=== PATIENT | male | born 1990 | race Caucasian/White ===

== ENCOUNTER 2021-02-15 17:22 | Emergency (ER) | payer OTHER ==
--- NOTE | 2021-02-15 20:25 | RAD REPORT ---
EXAM DESCRIPTION: CT - CTHCSPWOC - 02/15/2021 8:11 pm CLINICAL HISTORY: Trauma, head and neck injury. PAIN COMPARISON: No comparisons TECHNIQUE: Axial 5 mm thick images of the head were obtained. Axial 2 mm thick images of the cervical spine were obtained with sagittal and coronal reconstruction images generated and reviewed. All CT scans are performed using dose optimization technique as appropriate and may include automated exposure control or mA/KV adjustment according to patient size. FINDINGS: CT HEAD WITHOUT CONTRAST: No acute hemorrhage, hydrocephalus or extra-axial collection is identified.No areas of brain edema or midline shift. The paranasal sinuses and mastoids are clear.The calvarium is intact. CT CERVICAL SPINE WITHOUT CONTRAST: No fracture or subluxation.No prevertebral soft tissues swelling is identified. IMPRESSION: No acute intracranial or cervical spine findings.
[2021-02-15 20:48] LABS: Basophils % 0.6 % (0-1.3); Hematocrit 41.5 % (39.6-49.0); MPV 8.9 fL (7.6-11.3); RBC Red Blood Cell Count 4.91 M/uL (4.33-5.43)
[2021-02-15] MEDS ORDERED: NA CHLORIDE 0.9% 1,000 ML ONE (20:52)
[2021-02-15] MEDS ORDERED: dexAMETHasone 10 MG/ML VIAL ONE (20:52)
[2021-02-15] MEDS ORDERED: KETOROLAC 30 MG/ML INJ ONE (20:52)
[2021-02-15 20:55] LABS: Albumin 4.5 g/dL (3.4-5.0); Bilirubin Total 1.7 mg/dL (0.2-1.0); Potassium 3.8 mmol/L (3.5-5.1); Protein, Total 7.5 g/dL (6.4-8.2)
--- NOTE | 2021-02-15 21:14 | EDPHYS ---
Physician Documentation [facility] Name: Karishma Rodriguez Age: 30 yrs Sex: Male : 1990 Arrival Date: 02/15/2021 Time: 17:23 Bed 15 Private MD: ROGERIO Physician Yash Vazquez HPI: 02/15 20:01 This 30 yrs old Male presents to ER via Ambulatory with complaints of Neck josh Injury, Neck Pain, <24hrs Old. 20:01 The patient or guardian complains of decreased range of motion, pain. The symptoms are josh located on the back of neck and posterior chest. Onset: The symptoms/episode began/occurred 1.5 month(s) ago. Context: The problem was sustained at an unknown location. Associated signs and symptoms: Pertinent positives: numbness, in the right arm and left arm. The pain radiates to the back, right arm and left arm. Modifying factors: The symptoms are alleviated by remaining still, the symptoms are aggravated by nothing. movement. Severity of symptoms: At their worst the symptoms were mild, moderate, in the emergency department the symptoms have improved, mildly. The patient has experienced similar episodes in the past, multiple times. Historical: - Allergies: 17:48 No Known Allergies; jd3 - Home Meds: 17:48 None [Active]; jd3 - PMHx: 17:48 None; jd3 - PSHx: 17:48 None; jd3 - Immunization history:: Adult Immunizations up to date. - Social history:: Smoking status: Patient denies any tobacco usage or history of. - Family history:: not pertinent. ROS: 20:01 Constitutional: Negative for fever, chills, and weight loss, Eyes: Negative for injury, josh pain, redness, and discharge, ENT: Negative for injury, pain, and discharge, Cardiovascular: Negative for chest pain, palpitations, and edema, Respiratory: Negative for shortness of breath, cough, wheezing, and pleuritic chest pain, Abdomen/GI: Negative for abdominal pain, nausea, vomiting, diarrhea, and constipation, Back: Negative for injury and pain, : Negative for injury, bleeding, discharge, and swelling, MS/Extremity: Negative for injury and deformity, Skin: Negative for injury, rash, and discoloration, Neuro: Negative for headache, weakness, numbness, tingling, and seizure, Psych: Negative for depression, anxiety, suicide ideation, homicidal ideation, and hallucinations, Allergy/Immunology: Negative for hives, rash, and allergies, Endocrine: Negative for neck swelling, polydipsia, polyuria, polyphagia, and marked weight changes, Hematologic/Lymphatic: Negative for swollen nodes, abnormal bleeding, and unusual bruising. 20:01 Neck: Positive for pain with movement, pain at rest. Exam: 20:01 Constitutional: This is a well developed, well nourished patient who is awake, alert, josh and in no acute distress. Head/Face: Normocephalic, atraumatic. Eyes: Pupils equal round and reactive to light, extra-ocular motions intact. Lids and lashes normal. Conjunctiva and sclera are non-icteric and not injected. Cornea within normal limits. Periorbital areas with no swelling, redness, or edema. ENT: Nares patent. No nasal discharge, no septal abnormalities noted. Tympanic membranes are normal and external auditory canals are clear. Oropharynx with no redness, swelling, or masses, exudates, or evidence of obstruction, uvula midline. Mucous membranes moist. Chest/axilla: Normal chest wall appearance and motion. Nontender with no deformity. No lesions are appreciated. Cardiovascular: Regular rate and rhythm with a normal S1 and S2. No gallops, murmurs, or rubs. Normal PMI, no JVD. No pulse deficits. Respiratory: Lungs have equal breath sounds bilaterally, clear to auscultation and percussion. No rales, rhonchi or wheezes noted. No increased work of breathing, no retractions or nasal flaring. Abdomen/GI: Soft, non-tender, with normal bowel sounds. No distension or tympany. No guarding or rebound. No evidence of tenderness throughout. Back: No spinal tenderness. No costovertebral tenderness. Full range of motion. Male : Normal genitalia with no discharge or lesions. Skin: Warm, dry with normal turgor. Normal color with no rashes, no lesions, and no evidence of cellulitis. MS/ Extremity: Pulses equal, no cyanosis. Neurovascular intact. Full, normal range of motion. Neuro: Awake and alert, GCS 15, oriented to person, place, time, and situation. Cranial nerves II-XII grossly intact. Motor strength 5/5 in all extremities. Sensory grossly intact. Cerebellar exam normal. Normal gait. Psych: Awake, alert, with orientation to person, place and time. Behavior, mood, and affect are within normal limits. 20:01 Neck: External neck: is normal, no acute changes, C-spine: no acute changes, Trachea: is midline with no obvious abnormalities, ROM/movement: pain, that is mild, with rotation to the left, with rotation to the right, with extension, with flexion. 20:41 ECG was reviewed by the Attending Physician. josh Vital Signs: 17:48 BP 131 / 96; Pulse 86; Resp 16 S; Temp 98.4(TE); Pulse Ox 98% on R/A; Weight 77 kg (R); jd3 Height 6 ft. 2 in. (190 cm) (R); Pain 7/10; 20:45 BP 133 / 86; Pulse 65; Resp 16 S; Pulse Ox 98% on R/A; ad5 22:23 BP 124 / 82; Pulse 61; Resp 16 S; Pulse Ox 98% on R/A; Pain 0/10; ad5 17:48 Body Mass Index 21.33 (77.00 kg, 190 cm) jd3 MDM: 19:30 Patient medically screened. josh 20:42 Differential diagnosis: arthritis, Cervical Disc Herniation Cervical Facet Syndrome josh Cervical Raiculopathy cervical strain, Degenerative Disc Disease fracture, Neck Contusion Osteoarthritis Simple Wedge Fracture Spinal Cord Compression torticollis. Data reviewed: vital signs, nurses notes, lab test result(s), EKG, radiologic studies, CT scan, plain films. Data interpreted: monitoring engineer: rate is 86 beats/min, rhythm is regular, Pulse oximetry: on room air is 98 %. Test interpretation: by ED physician or midlevel provider: ECG, plain radiologic studies. Counseling: I had a detailed discussion with the patient and/or guardian regarding: the historical points, exam findings, and any diagnostic results supporting the discharge/admit diagnosis, lab results, radiology results, the need for outpatient follow up, for definitive care, a family practitioner, a neurologist. 02/15 20:00 Order name: CBC with Diff; Complete Time: 21:12 [facility] 02/15 20:00 Order name: Comprehensive Metabolic Panel; Complete Time: 21:12 [facility] 02/15 20:00 Order name: Sed Rate; Complete Time: 21:12 [facility] 02/15 20:05 Order name: Troponin (emerg Dept Use Only); Complete Time: 21:12 [facility] 02/15 20:06 Order name: D-Dimer; Complete Time: 21:12 [facility] 02/15 20:05 Order name: CT Head C Spine; Complete Time: 20:32 [facility] 02/15 20:05 Order name: Chest Single View XRAY [facility] 02/15 20:05 Order name: EKG; Complete Time: 20:06 [facility] 02/15 20:05 Order name: EKG - Nurse/Tech; Complete Time: 20:42 [facility] EC:41 Rate is 58 beats/min. Rhythm is regular. QRS [place] is Normal. IN interval is normal. QRS josh interval is normal. QT interval is normal. No Q waves. T waves are Normal. No ST changes noted. Clinical impression: NSR w/ Non-specific ST/T Changes and No evidence of ischemia. Interpreted by me. Reviewed by me. Administered Medications: 20:38 Drug: Decadron - Dexamethasone 10 mg Route: IVP; Site: right antecubital; ea 22:23 Follow up: Response: No adverse reaction ad5 20:39 Drug: NS 0.9% 1000 ml Route: IV; Rate: 1 bolus; Site: right antecubital; ea 22:24 Follow up: IV Status: Completed infusion; IV Intake: 1000ml ad5 20:39 Drug: TORadol (ketorolac) 30 mg Route: IVP; Site: right antecubital; ea 22:23 Follow up: Response: No adverse reaction ad5 Disposition: 02/15/21 21:13 Discharged to Home. Impression: Strain of muscle, fascia and tendon at neck level, Radiculopathy, cervical region. - Condition is Stable. - Discharge Instructions: Cervical Radiculopathy, Muscle Strain, Cervical Sprain, [id number], Cervical Radiculopathy, [id number], Radicular Pain. - Prescriptions for dexamethasone 2 mg Oral tablet - take 1 tablet by ORAL route 2 times per day; 10 tablet. Ibuprofen 600 mg Oral Tablet - take 1 tablet by ORAL route every 6 hours As needed take with food; 20 tablet. Cyclobenzaprine 5 mg Oral Tablet - take 1 tablet by ORAL route 3 times per day As needed; 15 tablet. - Medication Reconciliation Form, Thank You Letter, Antibiotic Education, Prescription Opioid Use form. - Follow up: Private Physician; When: 2 - 3 days; Reason: Recheck today's complaints, Continuance of care, Re-evaluation by your physician. Follow up: Chaz Mullins; When: 2 - 3 days; Reason: Recheck today's complaints, Continuance of care, Re-evaluation by your physician. - Problem is new. - Symptoms have improved. Signatures: Dispatcher [employer] [facility] Yash Vazquez MD MD cha Antunez, Elena, RN RN ea Davies, Jonathon, RN RN jd3 Davidson, Andrea ad5 Corrections: (The following items were deleted from the chart) 20:08 20:00 C Spine Wo Con+CT.RAD.BRZ ordered. [facility] 22:26 21:13 02/15/2021 21:13 Discharged to Home. Impression: Strain of muscle, fascia and ad5 tendon at neck level; Radiculopathy, cervical region. Condition is Stable. Discharge Instructions: Cervical Radiculopathy, Muscle Strain, Cervical Sprain, [id number], Cervical Radiculopathy, [id number], Radicular Pain. Prescriptions for dexamethasone 2 mg Oral tablet - take 1 tablet by ORAL route 2 times per day; 10 tablet, Ibuprofen 600 mg Oral Tablet - take 1 tablet by ORAL route every 6 hours As needed take with food; 20 tablet, Cyclobenzaprine 5 mg Oral Tablet - take 1 tablet by ORAL route 3 times per day As needed; 15 tablet. and Forms are Medication Reconciliation Form, Thank You Letter, Antibiotic Education, Prescription Opioid Use. Follow up: Private Physician; When: 2 - 3 days; Reason: Recheck today's complaints, Continuance of care, Re-evaluation by your physician. Follow up: Chaz Mullins; When: 2 - 3 days; Reason: Recheck today's complaints, Continuance of care, Re-evaluation by your physician. Problem is new. Symptoms have improved. josh
--- NOTE | 2021-02-15 21:14 | ER ---
Nurse's Notes [facility] Name: Karishma Rodriguez Age: 30 yrs Sex: Male : 1990 Arrival Date: 02/15/2021 Time: 17:23 Bed 15 Private MD: Diagnosis: Strain of muscle, fascia and tendon at neck level;Radiculopathy, cervical region Presentation: 02/15 17:44 Chief complaint: Patient states: "in the last 3-4 days I have been getting worse. my jd3 neck is causing pain that causes vision problems, and shooting pain down into my back. this pain almost causes blackouts. it makes it feel like my arms are burning from time to time. the pain into the back sometimes does not allow me to get a full breath. it is not allowing me to sleep to well.". Coronavirus screen: At this time, the client does not indicate any symptoms associated with coronavirus-19. Ebola Screen: Patient negative for fever greater than or equal to 101.5 degrees Fahrenheit, and additional compatible Ebola Virus Disease symptoms. Initial Sepsis Screen: Does the patient meet any 2 criteria? No. Patient's initial sepsis screen is negative. Does the patient have a suspected source of infection? No. Patient's initial sepsis screen is negative. Risk Assessment: Do you want to hurt yourself or someone else? Patient reports no desire to harm self or others. Onset of symptoms was February 11, 2021. 17:44 Method Of Arrival: Ambulatory jd3 17:44 Acuity: MILANA 3 jd3 Historical: - Allergies: 17:48 No Known Allergies; jd3 - Home Meds: 17:48 None [Active]; jd3 - PMHx: 17:48 None; jd3 - PSHx: 17:48 None; jd3 - Immunization history:: Adult Immunizations up to date. - Social history:: Smoking status: Patient denies any tobacco usage or history of. - Family history:: not pertinent. Screenin:44 Abuse screen: Denies threats or abuse. Denies injuries from another. Nutritional ad5 screening: No deficits noted. Tuberculosis screening: No symptoms or risk factors identified. Fall Risk None identified. Assessment: 20:43 General: Appears in no apparent distress. Behavior is calm, cooperative, appropriate ad5 for age. Pain: Complains of pain in neck, mid upper back, RUE/LUE. Neuro: Level of Consciousness is awake, alert, obeys commands, Oriented to person, place, time, situation, Appropriate for age Inspector And Mender are equal bilaterally Moves all extremities. Speech is normal, Numbness in right arm and left arm. Cardiovascular: No deficits noted. Heart tones present Capillary refill < 3 seconds JVD is absent Patient's skin is warm and dry. Respiratory: No deficits noted. Airway is patent Respiratory effort is even, unlabored, Respiratory pattern is regular, symmetrical. GI: No deficits noted. No signs and/or symptoms were reported involving the gastrointestinal system. : No deficits noted. No signs and/or symptoms were reported regarding the genitourinary system. EENT: No deficits noted. No signs and/or symptoms were reported regarding the EENT system. Derm: No deficits noted. No signs and/or symptoms reported regarding the dermatologic system. Skin is pink, warm \\T\\ dry. Musculoskeletal: Reports numbness in RUE and LUE pain in posterior neck, mid upper back, LUE/RUE. 22:22 Reassessment: Patient appears in no apparent distress at this time. Patient and/or ad5 family updated on plan of care and expected duration. Pain level reassessed. Patient is alert, oriented x 3, equal unlabored respirations, skin warm/dry/pink. Patient states feeling better. Patient states symptoms have improved. Vital Signs: 17:48 BP 131 / 96; Pulse 86; Resp 16 S; Temp 98.4(TE); Pulse Ox 98% on R/A; Weight 77 kg (R); jd3 Height 6 ft. 2 in. (190 cm) (R); Pain 7/10; 20:45 BP 133 / 86; Pulse 65; Resp 16 S; Pulse Ox 98% on R/A; ad5 22:23 BP 124 / 82; Pulse 61; Resp 16 S; Pulse Ox 98% on R/A; Pain 0/10; ad5 17:48 Body Mass Index 21.33 (77.00 kg, 190 cm) jd3 ED Course: 17:23 Patient arrived in ED. am2 17:47 Triage completed. jd3 17:49 Arm band placed on. jd3 19:30 Yash Vazquez MD is Attending Physician. josh 19:43 Conrad Randolph is Primary Nurse. ad5 19:44 Patient has correct armband on for positive identification. Bed in low position. Call ad5 light in reach. Side rails up X 1. Pulse ox on. NIBP on. Door closed. Noise minimized. 20:10 CT Head C Spine In Process Unspecified. EDMS 20:29 Inserted saline lock: 20 gauge in right antecubital area, using aseptic technique. ea Blood collected. 21:12 Chest Single View XRAY In Process Unspecified. EDMS 21:13 Chaz Mullins MD is Referral Physician. josh 22:25 No provider procedures requiring assistance completed. IV discontinued, intact, ad5 bleeding controlled, No redness/swelling at site. Pressure dressing applied. Administered Medications: 20:38 Drug: Decadron - Dexamethasone 10 mg Route: IVP; Site: right antecubital; ea 22:23 Follow up: Response: No adverse reaction ad5 20:39 Drug: NS 0.9% 1000 ml Route: IV; Rate: 1 bolus; Site: right antecubital; ea 22:24 Follow up: IV Status: Completed infusion; IV Intake: 1000ml ad5 20:39 Drug: TORadol (ketorolac) 30 mg Route: IVP; Site: right antecubital; ea 22:23 Follow up: Response: No adverse reaction ad5 Intake: 22:24 IV: 1000ml; Total: 1000ml. ad5 Outcome: 21:13 Discharge ordered by . josh 22:25 Discharged to home ambulatory. ad5 22:25 Condition: stable 22:25 Discharge instructions given to patient, Instructed on discharge instructions, follow up and referral plans. medication usage, Demonstrated understanding of instructions, follow-up care, medications, Prescriptions given X 3. 22:26 Patient left the ED. ad5 Signatures: Dispatcher [employer] EDYash Burton MD MD cha Moreno, Amanda am2 Lanie Leong, RN Yordan Merritt ea, RN RN jd3 Davidson, Andrea ad5
--- NOTE | 2021-02-15 21:20 | RAD REPORT ---
EXAM DESCRIPTION: RAD - Chest Single View - 02/15/2021 9:12 pm CLINICAL HISTORY: COUGH Chest pain. COMPARISON: No comparisons FINDINGS: Portable technique limits examination quality. The lungs are grossly clear. The heart is normal in size. No displaced fractures. IMPRESSION: No acute intrathoracic process suspected.
[2021-02-15 22:31] VITALS: TEMP 98.4; O2SAT 98
[2021-02-15 22:34] VITALS: BP 124/82
--- NOTE | 2021-02-17 07:28 | EKG ---
Test Date: 2021-02-15 Test Time: 20:37:26 Professional Caster: AGUSTO MEASUREMENT RESULTS: Intervals: Rate: 58 UT: 162 QRSD: 94 QT: 406 QTc: 398 Burke: P: 56 UT: 162 QRS: 32 T: 58 INTERPRETIVE STATEMENTS: Sinus bradycardia Incomplete right bundle branch block Borderline ECG No previous ECG available for comparison Electronically Signed On 02-17-21 07:26:42 CDT by Vicente Sheldon
== END 2021-02-15 22:26 | disposition home or self-care (01) ==
LOC: ER 17:22 → EDBD 17:22 → ER 22:26
DX: S16.1XXA Strain of muscle, fascia and tendon at neck level, initial encounter (principal); M54.12 Radiculopathy, cervical region; X58.XXXA Exposure to other specified factors, initial encounter
CPT/HCPCS: 36415; 70450; 71045; 72125; 80053; 84484; 85025; 85379; 85652; 93005; 96361; 96374; 96375; 99284; J1100; J7030